=== PATIENT | female | born 1950 | race Caucasian/White ===

== ENCOUNTER 2025-01-07 21:03 | Emergency (ER) | payer MEDICARE, OTHER ==
[2025-01-07] MEDS ORDERED: Sodium Chloride 0.9% 10 ML Syringe FLUSH PRN ×2 (21:08→21:20)
[2025-01-07 21:25] LABS: BASOPHILS PERCENT AUTO 0.6 % (0.0-1.0); EOSINOPHILS ABSOLUTE AUTO 0.4 K/mm3 (0.0-0.4); HEMATOCRIT 32.4 % (37.0-47.0); HEMOGLOBIN 10.8 gm/dl (12.0-16.0); IMMATURE GRAN ABSOLUTE AUTO 0.01 K/mm3 (0.00-0.05); IMMATURE GRAN PERCENT AUTO 0.1 % (0.0-0.4); LYMPHOCYTES ABSOLUTE AUTO 2.7 K/mm3 (1.0-4.8); LYMPHOCYTES PERCENT AUTO 38.8 % (24.0-44.0); MEAN CORPUSCULAR HEMOGLOBIN 32.2 pg (28.0-32.0); MEAN CORPUSCULAR HGB CONC 33.3 g/dl (32.0-36.0); MEAN CORPUSCULAR VOLUME 96.7 fl (83.0-99.0); MEAN PLATELET VOLUME 10.4 fl (9.4-12.3); MONOCYTES ABSOLUTE AUTO 0.6 K/mm3 (0.0-0.8); MONOCYTES PERCENT AUTO 8.5 % (0.0-8.0); NEUTROPHILS ABSOLUTE AUTO 3.3 K/mm3 (1.8-7.7); PLATELET COUNT,PLT 184 K/mm3 (150-400); RED BLOOD CELL COUNT 3.35 M/mm3 (4.10-5.30); WHITE BLOOD CELL COUNT,WBC 7.03 K/mm3 (3.9-11.3)
[2025-01-07] MEDS: Sodium Chloride 0.9% 1,000 ML IV ONE (21:31)
[2025-01-07] MEDS: Sodium Chloride 0.9% 10 ML Syringe FLUSH ONE (21:35)
[2025-01-07] MEDS: Sodium Chloride 0.9% 100 ML IV SCH (21:35)
[2025-01-07] MEDS: Iopamidol 755 Mg/ML 100 ML Bottle IVPUSH ONE (21:35)
[2025-01-07] MEDS: Tenecteplase 50 MG Kit IV ONE (21:36)
[2025-01-07 21:45] LABS: PROTHROMBIN TIME 10.6 SECONDS (9.7-12.0)
[2025-01-07 21:46] LABS: PTT,PARTIAL THROMBOPLSTIN TIME 26.1 SECONDS (21.7-31.4)
[2025-01-07 21:49] LABS: A/G RATIO 0.9 (1-2); ALBUMIN 2.7 g/dl (3.4-5.0); ANION GAP 12.8 (5-15); BILIRUBIN TOTAL 0.2 mg/dL (0.2-1.0); CREATININE 1.1 mg/dL (0.55-1.02); EST CRCL DRUG DOSING (CG) 32.72 mL/min; POTASSIUM,K 3.8 mEq/L (3.5-5.1); PROTEIN TOTAL,TP 5.7 g/dl (6.4-8.2)
== END 2025-01-07 22:20 ==
LOC: JD.ED 21:03
DX: I63.9 Cerebral infarction, unspecified (principal)
CPT/HCPCS: 36415; 37195; 70450; 70496; 70498; 80053; 84484; 85025; 85610; 85730; 93005; 99285; J3101; J7030; Q9967; 93010